=== PATIENT | female | born 1955 | race Caucasian/White ===

== ENCOUNTER → 2018-04-13 10:48 | Outpatient (CLI) | payer OTHER, SELFPAY ==
[2018-04-13 12:30] LABS: Calcium,Total 9.5 mg/dL (8.5-10.1); Creatinine, Serum 1.46 mg/dL (0.55-1.02); EST Glomerular Filtration Rate 38 mL/min (>60); Est Glom Filt Rate - Afr Amer 46 mL/min (>60)
[2018-04-14 12:21] LABS: Vitamin D,25 Hydroxy 20.1 ng/mL (29.95-100.01)
== END ==
PROVIDERS: Family Provider Family Medicine; PCP Family Medicine; Visit Provider Family Medicine
DX: M81.0 Age-related osteoporosis without current pathological fracture (principal)
CPT/HCPCS: 36415; 82306; 82310; 82565

== ENCOUNTER → 2018-08-24 10:12 | Outpatient (CLI) | payer OTHER, SELFPAY ==
[2018-08-24 12:22] LABS: BUN 24 mg/dL (7-18); EST Glomerular Filtration Rate 40 mL/min (>60); Est Glom Filt Rate - Afr Amer 49 mL/min (>60)
== END ==
PROVIDERS: Family Provider Family Medicine; PCP Family Medicine; Referring Provider Family Medicine; Visit Provider Family Medicine
DX: R79.89 Other specified abnormal findings of blood chemistry (principal)
CPT/HCPCS: 36415; 82565; 84520

== ENCOUNTER → 2018-10-13 08:05 | Outpatient (CLI) | payer OTHER, SELFPAY ==
--- NOTE | 2018-10-13 08:09 | BI_ITS ---
MAMMOGRAPHY - BILATERAL SCREENING REASON FOR EXAM: Female, 63 years old. Routine annual screening examination. PERTINENT HISTORY: Non-contributory. TECHNIQUE: Digital bilateral breast lisa (3D mammographic acquisition) in the CC and MLO projections. 2-D mediolateral oblique (MLO) and craniocaudad (CC) views of both breasts were obtained. CAD: Full Field Digital Mammography with Computer Added Detection was performed. COMPARISON: Comparison is made with prior outside examination dated 2004. FINDINGS: Breast Composition: The breasts are almost entirely fatty. There are no dominant masses or suspicious calcifications. Stable bilateral benign appearing axillary lymph nodes. No other significant abnormalities are identified. There has been no significant change since the prior study. BI/SCREENING MAMM (CAD), BILAT IMPRESSION: Stable bilateral screening mammogram. Yearly follow-up mammogram recommended. (A) ASSESSMENT CATEGORY: BIRADS Category 2: Benign. A letter regarding these results will be sent to the patient by the facility within 30 days. Approximately 10% of breast cancers are not detected by mammography. A normal mammogram should not delay biopsy of a clinically suspicious abnormality. [id number] Electronically Signed: Derrick Zaman MD at 9:21 EST Tel [phone], Service support ,
--- OUTSIDE RECORDS SUMMARY | 2018-12-08 01:42 | XMS RPT_ITS ---
:1955 Author Organization [place] Care Team Providers Name Role Phone Haroon Pickard Attending Unavailable Haroon Pickard Referring Unavailable Haroon Pickard Primary Care Unavailable Haroon Pickard Attending Unavailable Haroon Pickard Referring Unavailable Haroon Pickard Primary Care Unavailable Haroon Pickard Attending Unavailable Haroon Pickard Primary Care Unavailable PROBLEMS PROBLEMS DATE TYPE CONDITION / CODE ATTENDING STATUS SOURCE 08/24/2018 Unknown R79.89 - Other Breann Pickard specified abnormal [facility] findings of blood Hospital chemistry / Repository R79.89(ICD-10) 04/13/2018 Unknown M81.0 - Breann Pickard Age-related [facility] osteoporosis Hospital without current Repository pathological fracture / M81.0(ICD-10) PROCEDURES PROCEDURES No Procedure Records FoundRESULTS RESULTS SCREENING MAMM (CAD), Observed: 10/13/2018 Status: F Source: ZANE BILAT 8:09 AM [facility] REPOSITORY [facility] Imaging Services [address] [place] [address] SCREENING MAMM (CAD), BILAT MR#: [id number] Acct: [id number] Name: ONEAL LOBATO Rep #: [id number] : 1955 F 63 From: Derrick Zaman MD PCP: Haroon Pickard DO Status: REG CLI Study: SCREENING MAMM (CAD), BILAT Date of Exam: 10/13/18 Exam# [id number] Ordering Dr: Haroon Pickard DO MAMMOGRAPHY - BILATERAL SCREENING REASON FOR EXAM: Female, 63 years old. Routine annual screening examination. PERTINENT HISTORY: Non-contributory. TECHNIQUE: Digital bilateral breast lisa (3D mammographic acquisition) in the CC and MLO projections. 2-D mediolateral oblique (MLO) and craniocaudad (CC) views of both breasts were obtained. CAD: Full Field Digital Mammography with Computer Added Detection was performed. COMPARISON: Comparison is made with prior outside examination dated 2004. FINDINGS: Breast Composition: The breasts are almost entirely fatty. There are no dominant masses or suspicious calcifications. Stable bilateral benign appearing axillary lymph nodes. No other significant abnormalities are identified. There has been no significant change since the prior study. BI/SCREENING MAMM (CAD), BILAT IMPRESSION: Stable bilateral screening mammogram. Yearly follow-up mammogram recommended. (A) ASSESSMENT CATEGORY: BIRADS Category 2: Benign. A letter regarding these results will be sent to the patient by the facility within 30 days. Approximately 10% of breast cancers are not detected by mammography. A normal mammogram should not delay biopsy of a clinically suspicious abnormality. [id number] Electronically Signed: Derrick Zaman MD at 9:21 EST Tel [phone], Service support , CC: Haroon Pickard DO Advisor [employer] Founder: Signed BUN Collected: 08/24/2018 Status: F Source: ZANE 10:23 AM [facility] REPOSITORY TYPE CODE TESTS RESULT OUT OF RANGE REFERENCE UNITS LAB L501.1000 7-18 mg/dL High BUN 24 Performed By: #### L501.1000, L501.1105 #### [facility] [address] [place], [place], [id number] SERUM CREATININE AND Collected: 08/24/2018 Status: F Source: [place] GFR 10:23 AM [facility] REPOSITORY TYPE CODE TESTS RESULT OUT OF RANGE REFERENCE UNITS LAB L501.1100 0.55-1.02 mg/dL High 1.40 CREAT,SERUM Result Comment: The validity of the calculated GFR AND GFRAA in patients over 70 years has not been determined. Clinical correlation is essential. LAB L501.1110 >60 mL/min Low EST GFR 40 Result Comment: Non- GFR Calc LAB L501.1115 >60 mL/min Low EST GFR - AA 49 Result Comment: GFR Calc Performed By: #### L501.1000, L501.1105 #### [facility] [address] [place], [place], [id number] SERUM CREATININE AND Collected: 04/13/2018 Status: F Source: [place] GFR 10:55 AM [facility] REPOSITORY TYPE CODE TESTS RESULT OUT OF RANGE REFERENCE UNITS LAB L501.1100 0.55-1.02 mg/dL High 1.46 CREAT,SERUM Result Comment: The validity of the calculated GFR AND GFRAA in patients over 70 years has not been determined. Clinical correlation is essential. LAB L501.1110 >60 mL/min Low EST GFR 38 Result Comment: Non- GFR Calc LAB L501.1115 >60 mL/min Low EST GFR - AA 46 Result Comment: GFR Calc Performed By: #### L501.1105, L501.2200 #### [facility] [address] [place], [address] CALCIUM,TOTAL Collected: 04/13/2018 Status: F Source: [place] 10:55 AM [facility] REPOSITORY TYPE CODE TESTS RESULT OUT OF RANGE REFERENCE UNITS LAB L501.2200 8.5-10.1 mg/dL Normal CA 9.5 Performed By: #### L501.1105, L501.2200 #### [facility] [place] [place] [facility] [address] [place], [address] VITAMIN D,25 HYDROXY Collected: 04/13/2018 Status: F Source: ZANE 10:55 AM [facility] REPOSITORY TYPE CODE TESTS RESULT OUT OF REFERENCE UNITS RANGE LAB L506.1000 29.95-100.01 ng/mL Low Vitamin D 20.1 25-OH Result Comment: Vitamin D 25(OH) Status Range Deficiency <20 ng/mL (50nmol/L) Insuffciency 20 - 30 ng/mL (50 - 75 nmol/L) Sufficiency 30 - 100 ng/mL (75 - 250 nmol/L) Toxicity >100 ng/mL (>250 nmol/L) Performed By: #### L506.1000 #### [place] [place] [place] [facility] [address] [place], [address] ALLERGIES ALLERGIES No Allergies Records FoundENCOUNTERS ENCOUNTERS ADMIT/DISCHARGE ACCOUNT ADMITTING ENCOUNTER LOCATION SOURCE NUMBER CLASS 10/13/2018 [id number] [facility] ing:OPBI Repository 08/24/2018 [id number] Amb[place] ing:MTLAB Repository 04/13/[id number] ing:MTLAB Repository PAYERS PAYERS ENCOUNTER GUARANTOR PAYER SUBSCRIBER SOURCE 10/13/2018 SANJIV [id number] Primary ONEAL [place] Beatrice [facility] Insurance:AULTCAREPol GARNESDOB: [facility] [place] icy Number: [id number] [facility] [address]Plj: (955) [id number] Repository [phone] (HP) e Date:8964-03-26HX [address] [place] [phone]: 10/13/2018 Secondary [facility] Insurance:SELF PAY [facility] Number: Effective Repository Date:2018-09-01 08/24/2018 Sanjiv Lobato288 Primary ONEAL [place] [address] Insurance:AULTCAREPol GARNESDOB[facility] [place] Number: [id number] Hospital [address]Xmo: 330 [id number] Repository [phone] () e Date:[id number] [address]TN: 08/24/2018 Secondary NOT GIVENUNK Z[place] Insurance:SELF PAY [facility] Number: Effective Repository Date:2018-08-24 04/13/2018 Sanjiv Dave Primary ONEAL [place] [address] Insurance:AULTCAREVahe MCDONALDB: [facility] icy Number: [id number] Hospital [address]Ghf: 330 [id number] Repository [phone] () e Date:[id number] [address] [address]OS: 04/13/2018 Secondary NOT GIVENUNK [place] Insurance:SELF PAY [facility] Number: Effective Repository Date:2018-04-13
== END ==
PROVIDERS: Family Provider Family Medicine; PCP Family Medicine; Visit Provider Family Medicine
DX: Z12.31 Encounter for screening mammogram for malignant neoplasm of breast (principal)
CPT/HCPCS: 77063; 77067

== ENCOUNTER → 2019-11-09 07:02 | Outpatient (CLI) | payer MEDICARE, OTHER, SELFPAY ==
--- NOTE | 2019-11-09 07:10 | BI_ITS ---
MAMMOGRAPHY - BILATERAL SCREENING 3-D TOMOSYNTHESIS REASON FOR EXAM: Female, 64 years old. Routine annual screening mammogram. PERTINENT HISTORY: No significant family history. TECHNIQUE: 2-D mammograms and 3-D Tomosynthesis of the breast (s) were performed. CAD was performed. COMPARISON: October 13, 2018 FINDINGS: The breast composition is almost entirely fat. Scattered benign calcifications are seen. No dense spiculated masses or suspicious microcalcifications are identified. No architectural distortion is identified. There is no skin thickening or retraction. There has been no significant change since the prior study. BI/SCREEN MAMM (CAD) W/VALERIY BILAT IMPRESSION: No mammographic signs of malignancy. Routine yearly mammograms recommended. ASSESSMENT CATEGORY: BIRADS Category 2: Benign. A letter regarding these results will be sent to the patient by the facility within 30 days. FOLLOW UP RECOMMENDATION: Yearly follow up mammogram recommended. (A) Approximately 10% of breast cancers are not detected by mammography. A normal mammogram should not delay biopsy of a clinically suspicious abnormality. Electronically Signed: Yuri Marquez MD at 11:26 EST , Service support ,
== END ==
PROVIDERS: Family Provider Family Medicine; PCP Family Medicine; Referring Provider Family Medicine; Visit Provider Family Medicine
DX: Z12.31 Encounter for screening mammogram for malignant neoplasm of breast (principal)
CPT/HCPCS: 77063; 77067

== ENCOUNTER → 2019-11-15 10:03 | Outpatient (CLI) | payer MEDICARE, SELFPAY ==
--- NOTE | 2019-11-15 10:08 | BD_ITS ---
STUDY: DUAL ENERGY X-RAY ABSORPTIOMETRY / DXA REASON FOR EXAM: Female, 64 years old. 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 COMPARISON: Comparison is made with prior study dated March 01, 2017. FINDINGS: Lumbar Spine (L1-L4): g/cm2 (1.193) / T-score (0.2) / Z-score (1.8) Findings are suggestive of normal bone density with a low fracture risk. Left Femur Total: g/cm2 (0.738) / T-score (-2.1) / Z-score (-0.9) Left Femoral Neck: g/cm2 (0.770) / T-score (-1.9) / Z-score (-0.4) Right Femur Total: g/cm2 (0.716) / T-score (-2.3) / Z-score (-1.1) Right Femoral Neck: g/cm2 (0.765) / T-score (-2.0) / Z-score (-0.5) The T-Scores on the most recent prior examination were: Lumbar Spine (L1-L4): There has been worsening of bone density since the previous examination. Left Femur Total: which represents a worsening of 3%. Right Femur Total: which represents a worsening of 2.6%. BD/Dexa Bone Density Study IMPRESSION: The patient is considered osteopenic as outlined below according to World Tio Organization (WHO) criteria with a high fracture risk. There has been worsening of bone density since the previous examination. Reference Information: The T-score is the number of standard deviations above or below the standard which is normal for young adults at their peak bone mineral density. The World Health Organization (WHO) interprets the T-scores as follows: Above -1 Normal bone density Between -1 and -2.5 Osteopenia Equal to / or below -2.5 Osteoporosis As a practical clinical guideline, osteopenia may be graded as follows: Mild -1 through -1.5 Moderate -1.6 through -2.0 Severe -2.1 through -2.4 The Z-score is the number of standard deviations above or below age-matched controls. A Z-score of less than -1.5 would be considered abnormal. References: 1. NIH Osteoporosis and Related Bone Diseases http://www.osteo.org 2. International Society for Clinical Densitometry http://www.iscd.org 3. National Osteoporosis Foundation http://www.nof.org Electronically Signed: Derrick Zaman, at 11:19 EST , Service support ,
== END ==
PROVIDERS: Family Provider Family Medicine; PCP Family Medicine; Referring Provider Family Medicine; Visit Provider Family Medicine
DX: Z78.0 Asymptomatic menopausal state (principal)
CPT/HCPCS: 77080

== ENCOUNTER → 2019-11-19 07:55 | Outpatient (CLI) | payer MEDICARE, OTHER, SELFPAY ==
[2019-11-19 10:48] LABS: ALB/GLOB Ratio 0.7 RATIO (0.9-2.4); AST(SGOT) 14 U/L (15-37); Alanine Aminotransfer ALT/SGPT 19 U/L (13-56); Albumin, Serum 3.2 g/dL (3.2-5.0); Alkaline Phosphatase 92 U/L (45-117); Anion Gap 5 (5-15); BUN 22 mg/dL (7-18); BUN/Creat Ratio 14.8 RATIO (10-20); Calcium,Total 9.4 mg/dL (8.5-10.1); Chloride 105 mmol/L (98-107); Cholesterol 191 mg/dL (200); Creatinine, Serum 1.49 mg/dL (0.55-1.02); EST Glomerular Filtration Rate 37 mL/min (>60); Est Glom Filt Rate - Afr Amer 45 mL/min (>60); Globulin 4.7 g/dL (2.2-4.2); Glucose 92 mg/dL (74-106); High Density Lipoprotein 55 mg/dL; Potassium 3.8 mmol/L (3.5-5.1); Protein, Total 7.9 g/dL (6.4-8.2); Sodium Level 138 mmol/L (136-145); Thyroid Stim Hormone (TSH) 2.32 uIU/mL (0.358-3.74); Triglycerides 117 mg/dL; Very Low Density Lipoprotein 23 mg/dL (5-40)
== END ==
PROVIDERS: Family Provider Family Medicine; PCP Family Medicine; Referring Provider Family Medicine; Visit Provider Family Medicine
DX: Z00.00 Encounter for general adult medical examination without abnormal findings (principal); I10 Essential (primary) hypertension; F32.9 Major depressive disorder, single episode, unspecified; Z13.6 Encounter for screening for cardiovascular disorders
CPT/HCPCS: 36415; 80053; 80061; 84443

== ENCOUNTER → 2021-04-14 16:52 | Outpatient (CLI) | payer MEDICARE, SELFPAY ==
[2021-04-14 18:56] LABS: ALB/GLOB Ratio 0.8 RATIO (0.9-2.4); AST(SGOT) 13 U/L (15-37); Alanine Aminotransfer ALT/SGPT 16 U/L (13-56); Albumin, Serum 3.3 g/dL (3.2-5.0); Alkaline Phosphatase 119 U/L (45-117); Anion Gap 7 (5-15); BUN 26 mg/dL (7-18); BUN/Creat Ratio 15.6 RATIO (10-20); Calcium,Total 9.4 mg/dL (8.5-10.1); Chloride 105 mmol/L (98-107); Creatinine, Serum 1.67 mg/dL (0.55-1.02); EST Glomerular Filtration Rate 33 mL/min (>60); Est Glom Filt Rate - Afr Amer 39 mL/min (>60); Globulin 4.4 g/dL (2.2-4.2); Glucose 127 mg/dL (74-106); Potassium 3.5 mmol/L (3.5-5.1); Protein, Total 7.7 g/dL (6.4-8.2); Sodium Level 138 mmol/L (136-145); Thyroid Stim Hormone (TSH) 2.28 uIU/mL (0.358-3.74)
== END ==
PROVIDERS: PCP Family Medicine; Referring Provider Family Medicine; Visit Provider Family Medicine
DX: I12.9 Hypertensive chronic kidney disease with stage 1 through stage 4 chronic kidney disease, or unspecified chronic kidney disease (principal); N18.1 Chronic kidney disease, stage 1; F32.9 Major depressive disorder, single episode, unspecified
CPT/HCPCS: 36415; 80053; 84443

== ENCOUNTER → 2021-04-15 10:39 | Outpatient (CLI) | payer MEDICARE, SELFPAY ==
[2021-04-15 12:35] LABS: Cholesterol 194 mg/dL (200); High Density Lipoprotein 60 mg/dL; Triglycerides 95 mg/dL; Very Low Density Lipoprotein 19 mg/dL (5-40)
== END ==
PROVIDERS: PCP Family Medicine; Referring Provider Family Medicine; Visit Provider Family Medicine
DX: Z13.6 Encounter for screening for cardiovascular disorders (principal)
CPT/HCPCS: 36415; 80061

== ENCOUNTER → 2023-05-06 | Outpatient (CLI) | payer MEDICARE, SELFPAY ==
[2023-05-06 10:43] LABS: ALB/GLOB Ratio 0.7 RATIO (0.9-2.4); AST(SGOT) 14 U/L (15-37); Alanine Aminotransfer ALT/SGPT 14 U/L (13-56); Albumin, Serum 3.1 g/dL (3.2-5.0); Alkaline Phosphatase 102 U/L (45-117); Anion Gap 6 (5-15); BUN 20 mg/dL (7-18); BUN/Creat Ratio 12.8 RATIO (10-20); Calcium,Total 9.5 mg/dL (8.5-10.1); Chloride 107 mmol/L (98-107); Cholesterol 170 mg/dL (200); Creatinine, Serum 1.56 mg/dL (0.55-1.02); EST Glomerular Filtration Rate 35 mL/min (>60); Est Glom Filt Rate - Afr Amer 42 mL/min (>60); Globulin 4.2 g/dL (2.2-4.2); Glucose 92 mg/dL (74-106); High Density Lipoprotein 51 mg/dL; Potassium 4.1 mmol/L (3.5-5.1); Protein, Total 7.3 g/dL (6.4-8.2); Sodium Level 139 mmol/L (136-145); Thyroid Stim Hormone (TSH) 3.45 uIU/mL (0.358-3.74); Triglycerides 113 mg/dL; Very Low Density Lipoprotein 23 mg/dL (5-40)
[2023-05-06 11:09] LABS: Hepatitis C Antibody Non-Reactive (Nonreactive)
== END | disposition home or self-care (01) ==
LOC: MTLAB 07:46
PROVIDERS: PCP Family Medicine; Referring Provider Family Medicine; Visit Provider Family Medicine
DX: Z00.00 Encounter for general adult medical examination without abnormal findings (principal); Z11.59 Encounter for screening for other viral diseases; I10 Essential (primary) hypertension; Z13.6 Encounter for screening for cardiovascular disorders
CPT/HCPCS: 36415; 80053; 80061; 84443; 86803

== ENCOUNTER → 2024-04-27 | Outpatient (CLI) | payer MEDICARE, SELFPAY ==
[2024-04-27 12:26] LABS: Hematocrit 31.9 % (37-47); Hemoglobin 9.6 g/dL (12.0-15.0); Mean Corp Hgb Conc 30.1 g/dL (32-36); Mean Corpuscular Hgb 26.5 pg (27.0-32.0); Mean Corpuscular Volume 88.1 fL (81-99); Mean Platelet Vol. 10.7 fl (6.2-12.0); Platelet Count 256 K/mm3 (150-450); RBC Distribution Width CV 15.1 % (11.6-14.6); RBC Distribution Width SD 48.9 fl (35.1-43.9); Red Blood Count 3.62 M/mm3 (4.2-5.4); White Blood Count 7.9 K/mm3 (4.4-11.0)
[2024-04-27 13:14] LABS: Vitamin B12 567 pg/mL (211-911); Vitamin D,25 Hydroxy 8.5 ng/mL
[2024-04-28 01:44] LABS: ALB/GLOB Ratio 0.8 RATIO (0.9-2.4); AST(SGOT) 16 U/L (15-37); Alanine Aminotransfer ALT/SGPT 13 U/L (13-56); Albumin, Serum 3.3 g/dL (3.2-5.0); Alkaline Phosphatase 112 U/L (45-117); Anion Gap 7 (5-15); BUN 27 mg/dL (7-18); BUN/Creat Ratio 17.1 RATIO (10-20); Calcium,Total 9.4 mg/dL (8.5-10.1); Chloride 107 mmol/L (98-107); Cholesterol 157 mg/dL (200); Creatinine, Serum 1.58 mg/dL (0.55-1.02); EST Glomerular Filtration Rate 34 mL/min (>60); Est Glom Filt Rate - Afr Amer 42 mL/min (>60); Glucose 96 mg/dL (74-106); High Density Lipoprotein 51 mg/dL; Potassium 4.3 mmol/L (3.5-5.1); Protein, Total 7.3 g/dL (6.4-8.2); Sodium Level 139 mmol/L (136-145); Triglycerides 67 mg/dL; Very Low Density Lipoprotein 13 mg/dL (5-40)
== END | disposition home or self-care (01) ==
LOC: MTLAB 10:27
PROVIDERS: PCP Family Medicine; Referring Provider Family Medicine; Visit Provider Family Medicine
DX: Z00.00 Encounter for general adult medical examination without abnormal findings (principal); I10 Essential (primary) hypertension; F33.0 Major depressive disorder, recurrent, mild; G44.209 Tension-type headache, unspecified, not intractable; Z13.1 Encounter for screening for diabetes mellitus; Z13.6 Encounter for screening for cardiovascular disorders; M85.80 Other specified disorders of bone density and structure, unspecified site
CPT/HCPCS: 36415; 80053; 80061; 82306; 82607; 84443; 85027